=== PATIENT | female | born 1950 | race Native Hawaiian/Other Pacific Islander ===

== ENCOUNTER 2017-12-14 12:22 | Emergency (ER) | payer OTHER ==
[2017-12-14 12:55] VITALS: TEMP 97.8
--- NOTE | 2017-12-14 13:09 | ED PDOC ---
Arrival/HPI - General Chief Complaint: Back Pain Time Seen by Provider: 12/14/17 12:54 Historian: Patient - History of Present Illness Narrative History of Present Illness (Text): 12/14/17 13:05 A 67 year old female, whose past medical history includes cirrhosis, presents to the emergency department complaining of right sided headaches at night for the past 2-3 weeks. Patient notes bilateral neck pain, which worsens with movement. Patient notes taking Alleve and Excedrin, with mild relief. Patient denies any fever, chills, nausea, vomiting, abdominal pain, chest pain, shortness of breath, dizziness, weakness, numbness, vision changes or any other complaints. Time/Duration: Other (2-3 weeks) Symptom Course: Unchanged Context: Home Past Medical History - Provider Review Nursing Documentation Reviewed: Yes - Cardiac Hx Cardiac Disorders: No - Pulmonary Hx Respiratory Disorders: No - Neurological Hx Neurological Disorder: No - HEENT Hx HEENT Disorder: No - Renal Hx Renal Disorder: No - Endocrine/Metabolic Hx Endocrine Disorders: No - Hematological/Oncological Hx Blood Disorders: No - Integumentary Hx Dermatological Disorder: Yes Hx Psoriasis: Yes - Musculoskeletal/Rheumatological Hx Musculoskeletal Disorders: No - Gastrointestinal Hx Gastrointestinal Disorders: No - Genitourinary/Gynecological Hx Genitourinary Disorders: No - Psychiatric Hx Psychophysiologic Disorder: No Hx Substance Use: No - Surgical History Hx Section: Yes Family/Social History - Physician Review Nursing Documentation Reviewed: Yes Family/Social History: No Known Family HX Smoking Status: Never Smoked Hx Alcohol Use: No Hx Substance Use: No Allergies/Home Meds Allergies/Adverse Reactions: Allergies No Known Allergies Allergy (Verified 12/14/17 12:48) Home Medications: Home Meds Medication Instructions Recorded Confirmed No Known Home Med 12/14/17 12/14/17 Review of Systems - Physician Review All systems were reviewed & negative as marked: Yes - Review of Systems Constitutional: absent: Fevers, Night Sweats Eyes: absent: Vision Changes Respiratory: absent: SOB Cardiovascular: absent: Chest Pain Gastrointestinal: absent: Abdominal Pain, Nausea, Vomiting Musculoskeletal: Neck Pain Neurological: Headache (at nights). absent: Dizziness, Focal Weakness Physical Exam Vital Signs Reviewed: Yes Vital Signs Temp Pulse Resp BP Pulse Ox 12/14/17 15:20 19 99 12/14/17 14:11 79 18 132/71 98 12/14/17 12:49 97.8 F 82 16 134/75 96 Temperature: Afebrile Blood Pressure: Normal Pulse: Regular Respiratory Rate: Normal Appearance: Positive for: Well-Appearing, Non-Toxic, Comfortable Pain Distress: None Mental Status: Positive for: Alert and Oriented X 3 - Systems Exam Head: Present: Atraumatic, Normocephalic Pupils: Present: PERRL Extroacular Muscles: Present: EOMI Conjunctiva: Present: Normal Ears: Present: Erythema Mouth: Present: Moist Mucous Membranes Neck: Present: Normal Range of Motion (bilateral neck pain with movement of head ), Paraspinal Tenderness (cervical tenderness to palpation). No: MIDLINE TENDERNESS, Bruit (carotid bruit) Respiratory/Chest: Present: Clear to Auscultation, Good Air Exchange. No: Respiratory Distress, Accessory Muscle Use Cardiovascular: Present: Regular Rate and Rhythm, Normal S1, S2. No: Murmurs Abdomen: No: Tenderness, Distention, Peritoneal Signs Back: Present: Normal Inspection Upper Extremity: Present: Normal Inspection. No: Cyanosis, Edema Lower Extremity: Present: Normal Inspection. No: Edema Neurological: Present: GCS=15, CN II-XII Intact, Speech Normal, Motor Func Grossly Intact, Normal Sensory Function, Gait Normal Skin: Present: Warm, Dry, Normal Color. No: Rashes Psychiatric: Present: Alert, Oriented x 3, Normal Insight, Normal Concentration Medical Decision Making ED Course and Treatment: 12/14/17 13:05 Impression: A 67 year old female with a right sided headache and bilateral neck pain, worse with movement. Plan: -- Head CT -- Valium and Toradol -- Reassess and disposition Progress Notes: Report Date : 12/14/2017 13:47:29 PROCEDURE: CT HEAD WITHOUT CONTRAST. Dictator : Matti Loo MD IMPRESSION: Normal CT of the Head. 12/14/17 16:33 CT performed and negative for mass as source of chronic headaches. Headache and neck pain improved after toradol and valium. Presentation consistent with muscle spasm as pain is b/l neck and worse with movement of head in both directions. Palpable muscle spasm. No neurologic deficits. - RAD Interpretation Radiology Orders: 12/14/17 13:04 HEAD W/O CONTRAST [CT] Stat - Medication Orders Current Medication Orders: Discontinued Medications Diazepam (Valium) 5 mg PO STAT STA PRN Reason: Protocol Stop: 12/14/17 13:05 Last Admin: 12/14/17 14:14 Dose: 5 mg Ketorolac Tromethamine (Toradol) 60 mg IM STAT STA Stop: 12/14/17 13:05 Last Admin: 12/14/17 14:17 Dose: 60 mg MAR Pain Assessment Document 12/14/17 14:17 [email or web address] (Rec: 12/14/17 14:17 [id number]) Pain Reassessment Is this a pain reassessment? No Sleep Is patient sleeping during reassessment? No Presence of Pain Presence of Pain Yes Pain Scale Used Pain Scale Used Numeric Location Pain Location Body Customer Experience Specialist Description Description Intermittent Intensity of Pain at present 6 Pain Behavior Facial Grimacing Aggravating Factors Changing Position Alleviating Factors/Management Position Change Techniques Alleviating Factors Medication IM Administration Charges Document 12/14/17 14:17 [email or web address] (Rec: 12/14/17 14:17 [id number]) Injection Site MAR Injection Site Left Gluteus Mike Charges for Administration # of IM Administrations 1 - Scribe Statement The provider has reviewed the documentation as recorded by the Scribe Melanie Jorgensen Provider Scribe Attestation: All medical record entries made by the Scribe were at my direction and personally dictated by me. I have reviewed the chart and agree that the record accurately reflects my personal performance of the history, physical exam, medical decision making, and the department course for this patient. I have also personally directed, reviewed, and agree with the discharge instructions and disposition. Disposition/Present on Arrival - Present on Arrival Any Indicators Present on Arrival: No History of DVT/PE: No History of Uncontrolled Diabetes: No Urinary Catheter: No History of Decub. Ulcer: No History Surgical Site Infection Following: None - Disposition Have Diagnosis and Disposition been Completed?: Yes Diagnosis: Muscle spasms of neck, Headache Disposition: HOME/ ROUTINE Disposition Time: 15:04 Patient Plan: Discharge Condition: GOOD Discharge Instructions (ExitCare): Tension Headache Additional Instructions: Follow-up with Dr. Last as you should have regular primary care follow-up. Return to ED if condition worsens or symptoms persist. Carol for pain Referrals: PCP,NO [Primary Care Provider] - Follow up with primary Irma Last MD [Staff Provider] - Follow up with primary Forms: [employer] (Swazi)
--- NOTE | 2017-12-14 13:49 | CT ---
PROCEDURE: CT HEAD WITHOUT CONTRAST. HISTORY: chronic headache COMPARISON: None available. TECHNIQUE: Axial computed tomography images were obtained through the head/brain without intravenous contrast. Radiation dose: Total exam DLP = 868 mGy-cm. This CT exam was performed using one or more of the following dose reduction techniques: Automated exposure control, adjustment of the mA and/or kV according to patient size, and/or use of iterative reconstruction technique. FINDINGS: HEMORRHAGE: No intracranial hemorrhage. BRAIN: No mass effect or edema. No atrophy or chronic microvascular ischemic changes. VENTRICLES: Unremarkable. No hydrocephalus. CALVARIUM: Unremarkable. PARANASAL SINUSES: Unremarkable as visualized. No significant inflammatory changes. MASTOID AIR CELLS: Unremarkable as visualized. No inflammatory changes. OTHER FINDINGS: None. IMPRESSION: Normal CT of the Head.
[2017-12-14 14:12] VITALS: BP 132/71; PULSE 79
[2017-12-14 15:21] VITALS: RESP 19; O2SAT 99
== END 2017-12-14 15:21 | disposition home or self-care (01) ==
LOC: ED 12:22
DX: R51 Headache (principal); M62.838 Other muscle spasm
CPT/HCPCS: 70450; 96372; 99281; J1885

== ENCOUNTER 2018-01-07 14:16 | Emergency (ER) | payer OTHER ==
--- NOTE | 2018-01-07 14:38 | ED PDOC ---
Arrival/HPI - General Chief Complaint: Medical Clearance Time Seen by Provider: 01/07/18 14:36 Historian: Patient - History of Present Illness Narrative History of Present Illness (Text): 01/07/18 14:38 A 67 year old female, whose past medical history includes cirrhosis, presents to the emergency department with b/l neck pain for over a month. Patient stated she was seen in this ED 4 weeks ago, and she had a negative CT Head. Patient was given Toradol IM, and Valium which relief pain. However, she continues with neck pain. Pain worsen with movement and relief with remaining still. Patient stated she saw her PMD x 2 days ago, which gave her a prescription to have routine blood test on outpatient laboratory. Patient denies SOB, CP, abdominal pain, recent travel, recent trauma, weakness, paresthesias, hemoptysis, lower back pain, urinary symptoms, n/v, dizziness, or abnormal gait. Time/Duration: Other (see hpi) Quality: Aching Context: Home Past Medical History - Provider Review Nursing Documentation Reviewed: Yes - Infectious Disease Hx of Infectious Diseases: None - Cardiac Hx Cardiac Disorders: No - Pulmonary Hx Respiratory Disorders: No - Neurological Hx Neurological Disorder: No - HEENT Hx HEENT Disorder: No - Renal Hx Renal Disorder: No - Endocrine/Metabolic Hx Endocrine Disorders: No - Hematological/Oncological Hx Blood Disorders: No - Integumentary Hx Dermatological Disorder: Yes Hx Psoriasis: Yes - Musculoskeletal/Rheumatological Hx Musculoskeletal Disorders: No - Gastrointestinal Hx Gastrointestinal Disorders: No - Genitourinary/Gynecological Hx Genitourinary Disorders: No - Psychiatric Hx Psychophysiologic Disorder: No Hx Substance Use: No - Surgical History Hx Section: Yes Family/Social History - Physician Review Nursing Documentation Reviewed: Yes Family/Social History: Other (noncontributory) Smoking Status: Never Smoked Hx Alcohol Use: No Hx Substance Use: No Allergies/Home Meds Allergies/Adverse Reactions: Allergies No Known Allergies Allergy (Verified 01/07/18 14:37) Review of Systems - Review of Systems Constitutional: Normal. absent: Fatigue, Weight Change, Fevers, Night Sweats Eyes: Normal ENT: Normal. absent: Sore Throat, Rhinorrhea Respiratory: Normal. absent: SOB, Cough Cardiovascular: Normal. absent: Chest Pain, Palpitations Gastrointestinal: Normal. absent: Abdominal Pain, Nausea, Vomiting Genitourinary Female: Normal. absent: Dysuria, Frequency Musculoskeletal: Neck Pain. absent: Back Pain, Myalgias Skin: Normal. absent: Rash Neurological: Normal. absent: Headache, Dizziness, Focal Weakness, Gait Changes , Speech Changes, Facial Droop, Disequilibrium, Seizure Endocrine: Normal Hemo/Lymphatic: Normal Psychiatric: Normal Physical Exam Vital Signs Temp Pulse Resp BP Pulse Ox 01/07/18 15:13 98.2 F 86 18 131/69 98 Temperature: Afebrile Blood Pressure: Normal Pulse: Regular Respiratory Rate: Normal Appearance: Positive for: Well-Appearing, Non-Toxic, Comfortable Pain Distress: None Mental Status: Positive for: Alert and Oriented X 3 - Systems Exam Head: Present: Atraumatic, Normocephalic Pupils: Present: PERRL Extroacular Muscles: Present: EOMI Conjunctiva: Present: Normal Mouth: Present: Moist Mucous Membranes Neck: Present: Normal Range of Motion, Trachea Midline. No: Meningeal Signs, MIDLINE TENDERNESS, Paraspinal Tenderness, Lymphadenopathy Respiratory/Chest: Present: Clear to Auscultation, Good Air Exchange. No: Respiratory Distress, Accessory Muscle Use, Wheezes, Retracting, Rhonchi Cardiovascular: Present: Regular Rate and Rhythm, Normal S1, S2. No: Murmurs Abdomen: No: Tenderness, Distention, Peritoneal Signs, Rebound, Guarding Back: Present: Normal Inspection. No: CVA Tenderness Upper Extremity: Present: Normal Inspection, Normal ROM, NORMAL PULSES. No: Cyanosis, Edema Lower Extremity: Present: Normal Inspection, Normal ROM. No: Edema Neurological: Present: GCS=15, CN II-XII Intact, Speech Normal, Motor Func Grossly Intact, Normal Sensory Function, Normal Cerebellar Funct, Gait Normal, Memory Normal Skin: Present: Warm, Dry, Normal Color. No: Rashes Psychiatric: Present: Alert, Oriented x 3, Normal Insight, Normal Concentration Medical Decision Making ED Course and Treatment: 01/07/18 16:50 Re-evaluation. Patient feels better. Discussed results and plan with patient who expresses understanding. All questions answered and there is agreement with the plan to discharge home with instructions. Patient stable for discharge. Return if symptoms persist or worsen. Patient was recommended to f/u orthopedist for her neck pain. Patient denies fever or illegal drug use. Denies recent trauma. Denies sob, cp, or neuro focal deficits. CT cervical spine was negative for fracture. CXR was NAD. Patient was recommended to return to ED if symptoms worsen. Patient is alert and oriented x 3, normal speech, and she has a normal gait. Re-evaluation Time: 16:52 Reassessment Condition: Re-examined, Improved - RAD Interpretation Narrative RAD Interpretations (Text): 01/07/18 16:54 PROCEDURE: CT Cervical Spine without contrast HISTORY: pain COMPARISON: None available. TECHNIQUE: Axial computed tomography images were obtained of the cervical spine without the use of intravenous contrast. Coronal and sagittal reformatted images were created and reviewed. Radiation dose: Total exam DLP = 340 mGy-cm. This CT exam was performed using one or more of the following dose reduction techniques: Automated exposure control, adjustment of the mA and/or kV according to patient size, and/or use of iterative reconstruction technique. FINDINGS: VERTEBRAE: No fracture. Normal alignment. No destructive bony lesion. DISCS/SPINAL CANAL/NEURAL FORAMINA: No significant central canal or neural foraminal stenosis. There is disc degeneration at C5-6 with a small posterior osteophytic ridge. PARASPINAL SOFT TISSUES: Unremarkable. OTHER FINDINGS: None. IMPRESSION: Disc degeneration at C5-6 with a posterior osteophytic ridge. No evidence of stenosis. No acute findings 01/07/18 16:54 HISTORY: cough COMPARISON: No prior. TECHNIQUE: Chest PA and lateral FINDINGS: LUNGS: No active pulmonary disease. PLEURA: No significant pleural effusion identified. No pneumothorax apparent. CARDIOVASCULAR: Normal. OSSEOUS STRUCTURES: No significant abnormalities. VISUALIZED UPPER ABDOMEN: Normal. OTHER FINDINGS: None. IMPRESSION: No active disease. Radiology Orders: 01/07/18 14:57 CERVICAL SPINE W/O CONTRAST [CT] Stat 01/07/18 14:58 CHEST TWO VIEWS (PA/LAT) [RAD] Stat - Medication Orders Current Medication Orders: Discontinued Medications Diazepam (Valium) 2 mg PO ONCE ONE PRN Reason: Protocol Stop: 01/07/18 15:00 Last Admin: 01/07/18 15:21 Dose: 2 mg Ketorolac Tromethamine (Toradol) 15 mg IM STAT STA Stop: 01/07/18 14:59 Last Admin: 01/07/18 15:21 Dose: 15 mg MAR Pain Assessment Document 01/07/18 15:21 HI (Rec: 01/07/18 15:21 HI [id number]) Pain Reassessment Is this a pain reassessment? No Sleep Is patient sleeping during reassessment? No Presence of Pain Presence of Pain Yes Location Pain Location Body Site Neck IM Administration Charges Document 01/07/18 15:21 HI (Rec: 01/07/18 15:21 HI [id number]) Injection Site MAR Injection Site Right Gluteus Mike Charges for Administration # of IM Administrations 1 Disposition/Present on Arrival - Present on Arrival Any Indicators Present on Arrival: No History of DVT/PE: No History of Uncontrolled Diabetes: No Urinary Catheter: No History of Decub. Ulcer: No History Surgical Site Infection Following: None - Disposition Have Diagnosis and Disposition been Completed?: Yes Diagnosis: Cervical paraspinal muscle spasm Disposition: HOME/ ROUTINE Disposition Time: 16:55 Patient Plan: Discharge Condition: GOOD Discharge Instructions (ExitCare): Muscle Spasms (DC) Additional Instructions: Call private doctor for follow up visit in 1-2 days. Take medication at bed time as instructed. Continue with home pain medication as instructed by your doctor. Make sure to have your blood test done as instructed by your doctor fasting. Return to emergency if pain worsen or new symptoms develop. Call orthopedist for your neck pain. Prescriptions: diaZEpam [Valium] 5 mg PO DAILY #7 tab traMADol [Ultram] 50 mg PO TID PRN #10 tab PRN Reason: Pain, Severe (8-10) Referrals: Joselito Boyle MD [Primary Care Provider] - Follow up with primary Matti Leal DO [Staff Provider] - Follow up with primary Forms: [employer] (Lebanese)
[2018-01-07 15:13] VITALS: RESP 18; TEMP 98.2
--- NOTE | 2018-01-07 16:04 | CT ---
PROCEDURE: CT Cervical Spine without contrast HISTORY: pain COMPARISON: None available. TECHNIQUE: Axial computed tomography images were obtained of the cervical spine without the use of intravenous contrast. Coronal and sagittal reformatted images were created and reviewed. Radiation dose: Total exam DLP = 340 mGy-cm. This CT exam was performed using one or more of the following dose reduction techniques: Automated exposure control, adjustment of the mA and/or kV according to patient size, and/or use of iterative reconstruction technique. FINDINGS: VERTEBRAE: No fracture. Normal alignment. No destructive bony lesion. DISCS/SPINAL CANAL/NEURAL FORAMINA: No significant central canal or neural foraminal stenosis. There is disc degeneration at C5-6 with a small posterior osteophytic ridge. PARASPINAL SOFT TISSUES: Unremarkable. OTHER FINDINGS: None. IMPRESSION: Disc degeneration at C5-6 with a posterior osteophytic ridge. No evidence of stenosis. No acute findings
--- NOTE | 2018-01-07 16:06 | RAD ---
HISTORY: cough COMPARISON: No prior. TECHNIQUE: Chest PA and lateral FINDINGS: LUNGS: No active pulmonary disease. PLEURA: No significant pleural effusion identified. No pneumothorax apparent. CARDIOVASCULAR: Normal. OSSEOUS STRUCTURES: No significant abnormalities. VISUALIZED UPPER ABDOMEN: Normal. OTHER FINDINGS: None. IMPRESSION: No active disease.
[2018-01-07 17:17] VITALS: BP 127/82; PULSE 72; O2SAT 100
== END 2018-01-07 17:15 | disposition home or self-care (01) ==
LOC: ED 14:16
DX: M62.838 Other muscle spasm (principal)
CPT/HCPCS: 71046; 72125; 96372; 99283; J1885